=== PATIENT | female | born 1965 | race Caucasian/White ===

== ENCOUNTER → 2018-09-05 13:30 | Outpatient (CLI) | payer OTHER, SELFPAY ==
[2018-09-11 13:22] LABS: HPV Reflexed? NOT INDICATED
== END ==
PROVIDERS: Referring Provider Obstetrics & Gynecology; Visit Provider Obstetrics & Gynecology
DX: Z12.4 Encounter for screening for malignant neoplasm of cervix (principal)
CPT/HCPCS: 87624; 88175; G0145

== ENCOUNTER → 2021-07-09 | Outpatient (CLI) | payer OTHER, SELFPAY ==
[2021-07-15 10:25] LABS: HPV Reflexed? NOT INDICATED
== END | disposition home or self-care (01) ==
LOC: LABSPEC 15:28
PROVIDERS: Visit Provider Obstetrics & Gynecology
DX: Z12.4 Encounter for screening for malignant neoplasm of cervix (principal)
CPT/HCPCS: 88175; G0145

== ENCOUNTER → 2022-12-04 | Outpatient (CLI) | payer OTHER, SELFPAY ==
--- NOTE | 2022-12-04 07:58 | MRI_ITS ---
INDICATION: LT HIP PAIN,LABRAL TEAR EXAMINATION: MRI - MR Hip W/O Contrast TECHNIQUE: Multiplanar and multisequence MR images of the LEFT hip. IV Contrast Dosage and Agent: None. COMPARISON: None. FINDINGS: BONE: No femoral neck fracture, avascular necrosis of the femoral head, or sacral insufficiency fracture. No suspicious bone marrow signal alteration. JOINT: Mild joint left hip symmetric as compared to right. Mild osteophytic spurring base of left femoral head symmetric as compared to right. MUSCLES: Normal muscle bulk and signal. ACETABULAR LABRUM: No evidence of a tear on this non-arthrogram exam. TENDONS: The gluteal tendons, hamstrings tendons, and iliopsoas tendon are intact. BURSA: No trochanteric bursitis. OTHER SOFT TISSUES: Unremarkable. PELVIS: Limited non-contrast imaging of the pelvic viscera is unremarkable. There is moderate loss of disc space height at L5-S1. Osteitis symphysis. Mild marrow edema within the symphysis pubis on the left. MRI/Lower Ext Joint Only (Routine) IMPRESSION: Mild osteoarthritis left hip symmetric as compared to right. Moderate degenerative disc disease L5-S1. Moderate osteitis symphysis. Marrow edema is seen within the symphysis pubis on the left. Electronically Signed: Bebeto Schulz MD at 14:38 EDT ,
--- NOTE | 2022-12-04 07:58 | MRI_ITS ---
INDICATION: RT HIP PAIN, LABRAL TEAR EXAMINATION: MRI - MR Hip W/O Contrast TECHNIQUE: Multiplanar and multisequence MR images of the RIGHT hip. IV Contrast Dosage and Agent: None. COMPARISON: None. FINDINGS: BONE: No femoral neck fracture, avascular necrosis of the femoral head, or sacral insufficiency fracture. No suspicious bone marrow signal alteration. JOINT: There is mild joint space narrowing of the right hip symmetric as compared to the left. No evidence of avascular necrosis, fracture, or marrow edema. MUSCLES: Normal muscle bulk and signal. ACETABULAR LABRUM: No evidence of a tear on this non-arthrogram exam. TENDONS: The gluteal tendons, hamstrings tendons, and iliopsoas tendon are intact. BURSA: Mild right hip trochanteric bursitis. OTHER SOFT TISSUES: Unremarkable. PELVIS: Limited non-contrast imaging of the pelvic viscera is unremarkable. Moderate loss of disc space height L5-S1 and L4-5. MRI/Lower Ext Joint Only (Routine) IMPRESSION: Mild osteoarthritis symmetric as compared to left. Mild right hip trochanteric bursitis. Electronically Signed: Bebeto Schulz MD at 14:51 EDT Reading Location ID and State: [id number] / [place] Tel , Service support ,
[2022-12-04 08:01] LABS: Absolute Lymphocyte Count 1.85 X10^3/uL (0.83-4.51); Absolute Neutrophil Count 4.6 X10^3/uL (2.0-7.7); Basophil# 0.07 X10^3/uL; Basophil% 0.9 % (0-1); Eosinophil# 0.27 X10^3/uL; Eosinophils% 3.6 % (0-5); Hematocrit 39.9 % (37-47); Hemoglobin 12.1 g/dL (12.0-15.0); Lymphocyte # 1.85 X10^3/ul (0.83-4.51); Lymphocyte % 24.5 % (19-41); Mean Corp Hgb Conc 30.3 g/dL (32-36); Mean Corpuscular Hgb 28.4 pg (27.0-32.0); Mean Corpuscular Volume 93.7 fL (81-99); Mean Platelet Vol. 10.2 fl (6.2-12.0); Monocyte# 0.73 X10^3/uL; Monocyte% 9.7 % (0-10); NRBC Flagged by Analyzer 0 % (0-5); Neutrophil # 4.59 X10^3/uL (2.7-7.7); Neutrophil % 60.9 % (47-70); Platelet Count 256 K/mm3 (150-450); RBC Distribution Width CV 14.6 % (11.6-14.6); Red Blood Count 4.26 M/mm3 (4.2-5.4); White Blood Count 7.5 K/mm3 (4.4-11.0)
[2022-12-04 08:37] LABS: ALB/GLOB Ratio 1.1 RATIO (0.9-2.4); AST(SGOT) 14 U/L (15-37); Alanine Aminotransfer ALT/SGPT 28 U/L (13-56); Albumin, Serum 3.7 g/dL (3.2-5.0); Alkaline Phosphatase 72 U/L (45-117); Anion Gap 3 (5-15); BUN 20 mg/dL (7-18); BUN/Creat Ratio 24.6 RATIO (10-20); Calcium,Total 8.8 mg/dL (8.5-10.1); Chloride 107 mmol/L (98-107); Cholesterol 230 mg/dL (200); Creatinine, Serum 0.81 mg/dL (0.55-1.02); EST Glomerular Filtration Rate 76 mL/min (>60); Est Glom Filt Rate - Afr Amer 92 mL/min (>60); Globulin 3.3 g/dL (2.2-4.2); Glucose 91 mg/dL (74-106); High Density Lipoprotein 82 mg/dL; Potassium 3.9 mmol/L (3.5-5.1); Sodium Level 138 mmol/L (136-145); Thyroid Stim Hormone (TSH) 0.97 uIU/mL (0.358-3.74); Triglycerides 59 mg/dL; Very Low Density Lipoprotein 12 mg/dL (5-40)
[2022-12-06 08:44] LABS: Vitamin B12 293 pg/mL (211-911); Vitamin D,25 Hydroxy 33.4 ng/mL
== END | disposition home or self-care (01) ==
PROVIDERS: PCP Internal Medicine
DX: Z00.00 Encounter for general adult medical examination without abnormal findings (principal); M86.8X9 Other osteomyelitis, unspecified sites; R53.83 Other fatigue; M25.551 Pain in right hip; S73.199A Other sprain of unspecified hip, initial encounter; E78.00 Pure hypercholesterolemia, unspecified; M16.12 Unilateral primary osteoarthritis, left hip; M51.37 Other intervertebral disc degeneration, lumbosacral region; R60.9 Edema, unspecified
CPT/HCPCS: 36415; 73721; 80053; 80061; 82306; 82607; 84443; 85025